=== PATIENT | male | born 1950 | race Caucasian/White ===

== ENCOUNTER 2022-12-12 20:56 | Emergency (ER) | payer BC ==
[~2022-12-12] VITALS: Ht 170.2 cm; Wt 95.3 kg
[2022-12-12 21:05] VITALS: BP_SYST 103
[2022-12-12 21:57] VITALS: BP_SYST 103
== END 2022-12-12 21:57 ==
LOC: SED 20:56
DX: Z02.89 Encounter for other administrative examinations (principal); Z79.899 Other long term (current) drug therapy
CPT/HCPCS: 99283